=== PATIENT | male | born 1970 | race Caucasian/White ===

== ENCOUNTER 2017-09-01 09:00 | Emergency (ER) | payer BC ==
[2017-09-01] MEDS ORDERED: Lidocaine 1% PF 5 ML VIAL ONE (09:21)
[2017-09-01] MEDS ORDERED: Adacel (T-DAP) 0.5 ML VIAL ONE (09:21)
== END 2017-09-01 09:43 | disposition home or self-care (01) ==
LOC: ERS 09:00
DX: S61.215A Laceration without foreign body of left ring finger without damage to nail, initial encounter (principal); E78.5 Hyperlipidemia, unspecified; F17.200 Nicotine dependence, unspecified, uncomplicated; Z79.899 Other long term (current) drug therapy; W26.8XXA Contact with other sharp object(s), not elsewhere classified, initial encounter
CPT/HCPCS: 12001; 90471; 90715; J2001